=== PATIENT | male | born 1990 | race Caucasian/White ===

== ENCOUNTER → 2019-09-06 | Outpatient (CLI) | payer BC, OTHER | LOC: MHCPAIN 09:45 | DX: M47.817 Spondylosis without myelopathy or radiculopathy, lumbosacral region (principal); M54.16 Radiculopathy, lumbar region | CPT/HCPCS: G0463 ==

== ENCOUNTER → 2019-09-15 | Outpatient (CLI) | payer BC, OTHER | LOC: MHCPAIN 08:53 | DX: M96.1 Postlaminectomy syndrome, not elsewhere classified (principal); M51.27 Other intervertebral disc displacement, lumbosacral region | CPT/HCPCS: J1100; Q9967 ==

== ENCOUNTER → 2020-03-27 | Outpatient (CLI) | payer BC, OTHER | LOC: MHCPAIN 13:11 | DX: M47.817 Spondylosis without myelopathy or radiculopathy, lumbosacral region (principal); M54.5 Low back pain; M53.3 Sacrococcygeal disorders, not elsewhere classified; G89.29 Other chronic pain; M96.1 Postlaminectomy syndrome, not elsewhere classified | CPT/HCPCS: G0463 ==

== ENCOUNTER → 2020-03-29 | Outpatient (CLI) | payer BC, OTHER | LOC: MHCPAIN 09:55 | DX: M47.817 Spondylosis without myelopathy or radiculopathy, lumbosacral region (principal); M54.5 Low back pain; M54.16 Radiculopathy, lumbar region ==

== ENCOUNTER → 2020-04-09 | Outpatient (CLI) | payer BC, OTHER | LOC: COL.RAD 14:00 | DX: M96.1 Postlaminectomy syndrome, not elsewhere classified (principal); G96.19 Other disorders of meninges, not elsewhere classified; M48.07 Spinal stenosis, lumbosacral region; M48.061 Spinal stenosis, lumbar region without neurogenic claudication; Z98.890 Other specified postprocedural states; M51.17 Intervertebral disc disorders with radiculopathy, lumbosacral region | CPT/HCPCS: A9585 ==

== ENCOUNTER → 2020-04-10 | Outpatient (CLI) | payer BC, OTHER | LOC: MHCPAIN 09:48 | DX: M47.817 Spondylosis without myelopathy or radiculopathy, lumbosacral region (principal); M54.5 Low back pain; M53.3 Sacrococcygeal disorders, not elsewhere classified; M96.1 Postlaminectomy syndrome, not elsewhere classified; M54.16 Radiculopathy, lumbar region | CPT/HCPCS: G0463 ==

== ENCOUNTER 2020-06-19 08:15 | Outpatient (RCR) | payer BC, OTHER | END 2020-07-18 | disposition home or self-care (01) | LOC: WSC | DX: M47.27 Other spondylosis with radiculopathy, lumbosacral region (principal); M96.1 Postlaminectomy syndrome, not elsewhere classified; M53.3 Sacrococcygeal disorders, not elsewhere classified ==